=== PATIENT | female | born 1940 | race Caucasian/White ===

== ENCOUNTER → 2016-06-08 | Outpatient (CLI) | payer MEDICARE ==
[2011-10-26 16:43] VITALS: BP 136/84
[~2016-06-08] MED LIST: FISH OIL 1000MG1 CAP PO; HCTZ 25MG25 MG PO; LISINOPRIL40 MG PO; MICROZIDE12.5 MG PO; MULTI-VITAMIN1 EACH PO; NATURE'S BOUNTY1 TAB PO; NORCO 325 MG-51 TAB PO; OS-CAL 500+D31 EACH PO
== END ==
LOC: MAMMO 14:42
DX: Z12.31 Encounter for screening mammogram for malignant neoplasm of breast (principal)
CPT/HCPCS: G0202

== ENCOUNTER → 2016-06-14 | Outpatient (CLI) | payer MEDICARE ==
[2016-06-14 16:51] VITALS: BP 128/68
== END ==
LOC: LAB 14:05 → AMSURD 14:05
DX: M79.605 Pain in left leg (principal); R79.1 Abnormal coagulation profile
CPT/HCPCS: J1650

== ENCOUNTER → 2016-06-15 | Outpatient (CLI) | payer MEDICARE ==
[2016-06-14 16:51] VITALS: BP 128/68
== END ==
LOC: RAD 07:46
DX: R79.1 Abnormal coagulation profile (principal); M89.8X6 Other specified disorders of bone, lower leg

== ENCOUNTER → 2016-08-16 | Outpatient (REF) ==
[2016-06-14 16:51] VITALS: BP 128/68
== END ==
LOC: LAB 14:01
DX: G62.9 Polyneuropathy, unspecified (principal)

== ENCOUNTER → 2019-11-20 | Outpatient (CLI) | payer MEDICARE ==
[2016-06-14 16:51] VITALS: BP 128/68
== END ==
LOC: MAMMO 13:28
DX: Z12.31 Encounter for screening mammogram for malignant neoplasm of breast (principal)